=== PATIENT | female | born 1990 | race Caucasian/White ===

== ENCOUNTER 2017-02-10 03:59 | Emergency (ER) | payer OTHER | END 2017-02-10 05:40 | disposition home or self-care (01) | LOC: FER 03:59 | DX: S20.229A Contusion of unspecified back wall of thorax, initial encounter (principal); S30.0XXA Contusion of lower back and pelvis, initial encounter; F17.210 Nicotine dependence, cigarettes, uncomplicated; W10.9XXA Fall (on) (from) unspecified stairs and steps, initial encounter; Y92.009 Unspecified place in unspecified non-institutional (private) residence as the place of occurrence of the external cause | CPT/HCPCS: 72072; 72110; J1885 ==

== ENCOUNTER 2017-04-13 10:25 | Emergency (ER) | payer OTHER ==
[2017-04-13 11:39] LABS: BILIRUBIN NEGATIVE (NEGATIVE); BLOOD 3+ Ery/uL (NEGATIVE); CLARITY HAZY (CLEAR); COLOR ORANGE (YELLOW); GLUCOSE (U) NORMAL (NORMAL); KETONE (U) NEGATIVE (NEGATIVE); LEUKOCYTES NEGATIVE Leu/uL (NEGATIVE); NITRITE NEGATIVE (NEGATIVE); PROTEIN 1+ mg/dL (NEGATIVE); SPECIFIC GRAVITY >=1.030 (1.001-1.030); UROBILINOGEN 0.2 mg/dL (0.2-1.0); pH 5.5 (5.0-9.0)
[2017-04-13 12:07] LABS: LACTIC ACID 0.8 mmol/L (0.5-2.2)
[2017-04-13 12:08] LABS: ALBUMIN 3.9 g/dL (3.5-5.0); BILIRUBIN - TOTAL 0.8 mg/dL (0.1-1.0); CREATININE 0.8 mg/dL (0.5-1.0); GLOBULIN (CALCULATION) 2.7 g/dL (2.2-4.2); POTASSIUM 3.9 mmol/L (3.5-5.1); TOTAL PROTEIN 6.6 g/dL (6.4-8.3)
[2017-04-13 12:18] LABS: BACTERIA 2+
[2017-04-13 12:21] LABS: BASOPHIL 0.3 % (0-2); EOSINOPHIL 1.6 % (0-5); HCT 41.3 % (37.0-47.0); HGB 14.7 g/dl (12.5-16.0); LYMPHOCYTE 9.8 % (15-48); MCH 30.4 pg (25.0-31.0); MCHC 35.6 g/dL (32.0-36.0); MCV 85.5 fL (78.0-100.0); MONOCYTE 5.2 % (0-12); NEUTROPHIL 83.1 % (41-80); PLT 188 K/uL (150-400); RBC 4.83 M/uL (4.20-5.40); RDW 12.5 % (11.5-14.0); WBC 11.4 K/uL (4.0-10.5)
== END 2017-04-13 15:13 | disposition home or self-care (01) ==
LOC: FER 10:25
PROVIDERS: Nurse Practitioner
DX: A04.8 Other specified bacterial intestinal infections (principal); R19.7 Diarrhea, unspecified; R82.90 Unspecified abnormal findings in urine; F17.210 Nicotine dependence, cigarettes, uncomplicated
CPT/HCPCS: 36415; 80053; 81001; 82150; 83605; 83690; 85025; 87088; 87339; C9113; J2405

== ENCOUNTER 2021-01-25 00:03 | Inpatient (IN) | payer OTHER ==
[~2021-01-25 00:03] MED LIST: AMOXICILLIN500 MG PO; AZITHROMYCIN250 MG PO; CEFDINIR300 MG PO; CLARITIN-D 121 EACH PO; IBUPROFEN800 MG PO; LITHIUM300 MG PO; METRONIDAZOLE500 MG PO; MOTRIN600 MG PO; PERCOCET 5-3251 EACH PO; PREDNISONE 10MG10 MG PO; PRENATAL FORMU1 EACH PO; VOLTAREN **OUT75 MG PO
[2021-01-25 00:56] LABS: BILIRUBIN NEGATIVE (NEGATIVE); BLOOD NEGATIVE Ery/uL (NEGATIVE); CLARITY CLEAR (CLEAR); COLOR YELLOW (YELLOW); GLUCOSE (U) NORMAL (NORMAL); LEUKOCYTES 1+ Leu/uL (NEGATIVE); NITRITE NEGATIVE (NEGATIVE); PROTEIN NEGATIVE (NEGATIVE); UROBILINOGEN 0.2 mg/dL (0.2-1.0)
[2021-01-25 01:04] LABS: BACTERIA 2+
[2021-01-25 01:05] LABS: SQUAMOUS EPITHELIAL CELLS 20-50
[2021-01-25 02:02] LABS: HCT 34.9 % (37.0-47.0); HGB 11.5 g/dl (12.5-16.0); MCH 29.3 pg (25.0-31.0); MPV 12.5 fL (6.0-9.5); RBC 3.92 M/uL (4.20-5.40); RDW 14.6 % (11.5-14.0); WBC 9.3 K/uL (4.0-10.5)
[2021-01-26 06:24] LABS: HCT 34.5 % (37.0-47.0); HGB 11.4 g/dl (12.5-16.0); MCH 29.1 pg (25.0-31.0); MPV 12.9 fL (6.0-9.5); RBC 3.92 M/uL (4.20-5.40); RDW 14.3 % (11.5-14.0); WBC 9.3 K/uL (4.0-10.5)
[2021-01-27] MEDS ORDERED: MOTRIN600 MG PO (09:54)
[2021-01-27] MEDS ORDERED: COLACE100 MG PO (09:54)
== END 2021-01-27 16:47 | disposition home or self-care (01) | DRG 807 ==
LOC: FOB 00:03
PROVIDERS: ADMIT Obstetrics & Gynecology
PROC: 10E0XZZ Delivery of Products of Conception, External Approach (ICD-10-PCS; principal; 2021-01-25)
PROC: 10907ZC Drainage of Amniotic Fluid, Therapeutic from Products of Conception, Via Natural or Artificial Opening (ICD-10-PCS; 2021-01-25)
PROC: 0HQ9XZZ Repair Perineum Skin, External Approach (ICD-10-PCS; 2021-01-25)
DX: O36.8130 Decreased fetal movements, third trimester, not applicable or unspecified (principal); Z37.0 Single live birth; Z3A.39 39 weeks gestation of pregnancy; O36.63X0 Maternal care for excessive fetal growth, third trimester, not applicable or unspecified; O99.213 Obesity complicating pregnancy, third trimester; E66.9 Obesity, unspecified; O99.013 Anemia complicating pregnancy, third trimester; D64.9 Anemia, unspecified; O70.0 First degree perineal laceration during delivery; Z20.822 Contact with and (suspected) exposure to COVID-19
CPT/HCPCS: 36415; 81001; 86850; 86900; 86901; J2300; J7120; U0002

== ENCOUNTER 2021-07-02 18:36 | Emergency (ER) | payer OTHER ==
[~2021-07-02 18:36] MED LIST changes: +COLACE100 MG PO
[2021-07-02] MEDS ORDERED: ONDANSETRON ODT4 MG SL (22:43)
[2021-07-02] MEDS ORDERED: IBUPROFEN800 MG PO (22:43)
== END 2021-07-02 23:05 | disposition home or self-care (01) ==
LOC: FER 18:36
DX: R51.9 Headache, unspecified (principal); Z20.822 Contact with and (suspected) exposure to COVID-19
CPT/HCPCS: J1100; J1885; J2765; J7030; U0002

== ENCOUNTER 2022-05-31 21:15 | Emergency (ER) | payer OTHER ==
[~2022-05-31 21:15] MED LIST changes: +ONDANSETRON ODT4 MG SL
[2022-05-31 21:40] LABS: BILIRUBIN NEGATIVE (NEGATIVE); BLOOD NEGATIVE Ery/uL (NEGATIVE); CLARITY CLEAR (CLEAR); COLOR YELLOW (YELLOW); GLUCOSE (U) NORMAL (NORMAL); LEUKOCYTES NEGATIVE Leu/uL (NEGATIVE); NITRITE NEGATIVE (NEGATIVE); PROTEIN NEGATIVE (NEGATIVE); SPECIFIC GRAVITY 1.025 (1.001-1.030)
[2022-05-31 22:24] LABS: HCT 40.9 % (37.0-47.0); HGB 13.4 g/dl (12.5-16.0); LYMPHOCYTE 31.1 % (15-48); MCH 28.7 pg (25.0-31.0); MCHC 32.8 g/dL (32.0-36.0); MCV 87.6 fL (78.0-100.0); MONOCYTE 5.3 % (0-12); MPV 12.2 fL (6.0-9.5); NEUTROPHIL 60.3 % (41-80); NRBC 0; PLT 181 K/uL (150-400); RBC 4.67 M/uL (4.20-5.40); WBC 8.7 K/uL (4.0-10.5)
[2022-05-31 22:35] LABS: ALBUMIN 3.5 g/dL (3.4-5.0); BILIRUBIN - TOTAL 0.3 mg/dL (0.2-1.0); BUN/CREAT RATIO (CALC) 14.6 RATIO; CREATININE 0.89 mg/dL (0.51-0.95); GLOBULIN (CALCULATION) 3.1 g/dL; POTASSIUM 3.7 mmol/L (3.5-5.1); TOTAL PROTEIN 6.6 g/dL (6.4-8.2)
[2022-05-31] MEDS ORDERED: MEDROL 4MG DOSEP4 MG PO (23:27)
[2022-05-31] MEDS ORDERED: NAPROXEN500 MG PO (23:28)
[2022-05-31] MEDS ORDERED: NORCO 5-325 TA1 EACH PO (23:28)
== END 2022-05-31 23:40 | disposition home or self-care (01) ==
LOC: FER 21:15
PROVIDERS: Internal Medicine
DX: M54.50 Low back pain, unspecified (principal); F17.210 Nicotine dependence, cigarettes, uncomplicated
CPT/HCPCS: 36415; 72131; 80053; 81003; 84145; 85025; J1100; J1170